=== PATIENT | male | born 1960 | race Caucasian/White ===

== ENCOUNTER 2020-02-05 19:48 | Emergency (ER) | payer OTHER, SELFPAY ==
--- NOTE | ~2020-02-05 | XR_ITS ---
XR hip RT 2V w AP pelvis 02/05/2020 20:06 Indication: Right hip pain after fall Procedure: 3 views right hip including AP pelvis Comparison: No prior studies for comparison. Findings: Pelvic rings are intact. No acute fracture or traumatic malalignment. No significant joint space narrowing. No focal soft tissue abnormality. Impression: 1: No acute fracture. Reviewed, dictated and finalized at location A. Impression: 1: No acute fracture.
[2020-02-05 19:46] VITALS: BP 134/74; PULSE 90; RESP 19; TEMP 37; O2SAT 100
--- NOTE | 2020-02-05 20:26 | ED.LOWEXIN ---
HPI - Extremity Injury (Lower) General Chief Complaint: Extremity Injury, Lower Stated Complaint: fall hip pain Time Seen by Provider: 02/05/20 19:51 History of Present Illness HPI Narrative: Patient presents to the ED via EMS after fall in the shower at [employer]. He is a long-distance truck body repairer. He slipped and fell in the shower. He hurt his right hip, and cannot bear weight. He also has a small cut on his right elbow. He is on Xarelto for previous PE, and the elbow has a very slow bleeding. He is concerned that he cannot have narcotics and work. And he cannot have the ibuprofen products because he is on a blood thinner. I offered to give him a couple days off work along with some narcotic pain pills. He agrees with the plan. He is single and lives in [place]. He will have to make arrangements for his truck and to get home. I will give him an orthopedic surgeon to follow-up with if his pain is not better after a couple days. He smokes cigarettes. He has had previous surgery on his left ankle, and a right inguinal hernia repair. He is a truck body repairer. complaint: hip injury Onset (ago): hour(s) Injury: Right: hip Related Data Allergies Allergy/AdvReac Type Severity Reaction Status Date / Time Penicillins AdvReac Unknown Verified 02/05/20 19:57 Review of Systems Review of Systems: Narrative: CONSTITUTIONAL: Denies fever, chills, or sweats. EYES: Denies visual changes, redness, or discharge. ENT: Denies rhinorrhea, congestion, sore throat, or otalgia. CARDIOVASCULAR: Denies chest pain, palpitations, or edema. RESPIRATORY: Denies cough or dyspnea. GASTROINTESTINAL: Denies abdominal pain, nausea, vomiting, or diarrhea. GENITOURINARY: Denies dysuria or hematuria. SKIN: Denies rash or itching. MUSCULOSKELETAL: Denies back pain, but has right hip pain . NEUROLOGIC: Denies headache, numbness, or weakness. PSYCHIATRIC: Denies anxiety or depression. [facility] Past Medical History Medical History Anticoagulation adequate with anticoagulant therapy History of pulmonary embolism Smoking Surgical History Surgical History History of ankle surgery History of inguinal hernia repair Social History Social History (Updated 02/05/20 @ 20:29 by Darcy Hollins MD) Smoking status: Former smoker Gender identity (if verbalized by the patient): Male Exam Narrative: Exam Narrative: GENERAL: Well-appearing, well-nourished, and in no acute distress. HEAD: Normocephalic, atraumatic. EYES: PERRLA and EOMI. ENT: Nares clear, no rhinorrhea or epistaxis. Mucous membranes moist. NECK: Supple. CHEST: Clear to auscultation. No respiratory distress. HEART: Regular rate and rhythm. No murmur heard. Normal peripheral pulses. ABDOMEN: Soft, nontender, nondistended, normal active bowel sounds. EXTREMITIES: Decreased range of motion of right hip. No edema. Less than 1 cm shallow laceration on the right elbow. SKIN: Warm, dry, no rash. NEURO: No focal deficits. Alert and oriented x3. PSYCH: Normal mood and affect. Course Vital Signs Vital signs: Vital Signs Temperature 98.6 F 02/05/20 19:46 Pulse Rate 90 02/05/20 19:46 Respiratory Rate 02/05/20 19:46 Blood Pressure 134/74 02/05/20 19:46 Pulse Oximetry 100 02/05/20 19:46 Temperature 98.6 F 02/05/20 19:46 Pulse Rate 88 02/05/20 21:00 Respiratory Rate 02/05/20 21:00 Blood Pressure 135/88 02/05/20 21:00 Pulse Oximetry 100 02/05/20 21:00 MDM - Extremity Injury (Lower) Medical Records Attestation: I reviewed the patient's medical records. Imaging Data Radiologist's impression: ITS Impressions Hip/Pelvis X-Ray 02/05/20 20:09 Impression: 1: No acute fracture. Discharge Plan Discharge Clinical Impression: Anticoagulation adequate with anticoagulant therapy, Smoking, Acute pain of right hip Fall Qualifiers: Encounter type: initial encounter Quali
[2020-02-05 21:00] VITALS: BP 135/88; PULSE 88; RESP 19; O2SAT 100
[2020-02-05 21:41] VITALS: BP 115/88; PULSE 88; RESP 19; TEMP 36.3; O2SAT 100
== END 2020-02-05 21:42 | disposition home or self-care (01) ==
LOC: ANHED 21:05
PROVIDERS: Emergency Provider Emergency Medicine
DX: S51.011A Laceration without foreign body of right elbow, initial encounter (principal); M25.551 Pain in right hip; Z86.711 Personal history of pulmonary embolism; Z79.01 Long term (current) use of anticoagulants; F17.210 Nicotine dependence, cigarettes, uncomplicated; W18.2XXA Fall in (into) shower or empty bathtub, initial encounter
CPT/HCPCS: 73502; 99283; A9270